=== PATIENT | female | born 1995 | race Caucasian/White ===

== ENCOUNTER 2017-08-19 23:19 | Emergency (ER) | payer OTHER ==
[2017-08-20 00:11] VITALS: RESP 18
--- NOTE | 2017-08-20 00:31 | ED PDOC ---
Arrival/HPI - General Chief Complaint: GI Problem Time Seen by Provider: 08/20/17 00:09 Historian: Patient - History of Present Illness Narrative History of Present Illness (Text): 08/20/17 00:31 Myranda Zapien is a 22 year old female who presents to the Emergency department accompanied by family complaining of nausea with multiple episodes of vomiting for 2 days. Patient also reports associated dizziness and abdominal discomfort. Patient states she has been unable to tolerate PO secondary to nausea. Patient denies any fever, chills, diarrhea, urinary symptoms, back pain , neck pain, headache, or any other complaints. Time/Duration: 24 hours Symptom Onset: Gradual Symptom Course: Unchanged Activities at Onset: Light Context: Home Past Medical History - Provider Review Nursing Documentation Reviewed: Yes - Infectious Disease Hx of Infectious Diseases: None - Psychiatric Hx Substance Use: No - Anesthesia Hx Anesthesia: No - Suicidal Assessment Feels Threatened In Home Enviroment: No Family/Social History - Physician Review Nursing Documentation Reviewed: Yes Family/Social History: Unknown Family HX Smoking Status: Never Smoked Hx Alcohol Use: No Hx Substance Use: No Allergies/Home Meds Allergies/Adverse Reactions: Allergies No Known Allergies Allergy (Verified 08/20/17 00:05) Review of Systems - Physician Review All systems were reviewed & negative as marked: Yes - Review of Systems Constitutional: Normal. absent: Fevers Eyes: Normal ENT: Normal Respiratory: Normal. absent: SOB, Cough Cardiovascular: Normal. absent: Chest Pain Gastrointestinal: Abdominal Pain, Nausea, Vomiting Genitourinary Female: Normal. absent: Dysuria, Frequency, Hematuria, Urine Output Changes Musculoskeletal: Normal. absent: Back Pain, Neck Pain Skin: Normal. absent: Rash Neurological: Dizziness. absent: Headache Endocrine: Normal Hemo/Lymphatic: Normal Psychiatric: Normal Physical Exam Vital Signs Reviewed: Yes Vital Signs Temp Pulse Resp BP Pulse Ox 08/20/17 03:30 97.7 F 68 18 119/72 98 08/20/17 00:03 97.8 F 87 18 129/76 99 Temperature: Afebrile Blood Pressure: Normal Pulse: Regular Respiratory Rate: Normal Appearance: Positive for: Well-Appearing, Non-Toxic, Comfortable Pain Distress: None Mental Status: Positive for: Alert and Oriented X 3 - Systems Exam Head: Present: Atraumatic, Normocephalic Pupils: Present: PERRL Extroacular Muscles: Present: EOMI Conjunctiva: Present: Normal Mouth: Present: Moist Mucous Membranes Neck: Present: Normal Range of Motion Respiratory/Chest: Present: Clear to Auscultation, Good Air Exchange. No: Respiratory Distress, Accessory Muscle Use Cardiovascular: Present: Regular Rate and Rhythm, Normal S1, S2. No: Murmurs Abdomen: Present: Normal Bowel Sounds. No: Tenderness, Distention, Peritoneal Signs Back: Present: Normal Inspection Upper Extremity: Present: Normal Inspection. No: Cyanosis, Edema Lower Extremity: Present: Normal Inspection. No: Edema Neurological: Present: GCS=15, CN II-XII Intact, Speech Normal Skin: Present: Warm, Dry, Normal Color. No: Rashes Psychiatric: Present: Alert, Oriented x 3, Normal Insight, Normal Concentration Medical Decision Making ED Course and Treatment: 08/20/17 00:31 Impression: 22 year old female complaining of nausea, vomiting, dizziness, and abdominal discomfort. Differential Diagnosis included but are not limited to: gastroenteritis vs. gastritis Plan: -- Labs -- Urinalysis -- IV fluids -- Reassess and disposition Progress Notes: 08/20/17 03:14 On reevaluation the patient feels better and is in no acute distress. I have discussed the results and plan with the patient, who expresses understanding. Patient given the opportunity to ask question, all questions were answered and there is agreement with the plan to discharge the patient home. Patient is stable for discharge. Patient was instructed to follow up with physician/clinic in 1-2 days or return if symptoms persist/worsen or new concerning symptoms arise. - Lab Interpretations Lab Results: 08/20/17 01:12 08/20/17 01:10 Lab Results 08/20/17 01:12: Urine Color Yellow, Urine Appearance Sl cloudy, Urine pH 7.5, Ur Specific [place] 1.015, Urine Protein Trace H, Urine Glucose (UA) Negative, Urine Ketones 40 H, Urine Blood Negative, Urine Nitrate Negative, Urine Bilirubin Negative, Urine Urobilinogen 1.0 H, Ur Leukocyte Esterase Negative, Urine RBC 0 - 2, Urine WBC 0 - 2, Ur Epithelial Cells 1 - 3, Amorphous Sediment Few, Urine Bacteria Occ 08/20/17 01:12: Urine HCG, Qual Negative 08/20/17 01:12: WBC 8.2, RBC 4.38, Hgb 12.6, Hct 37.0, MCV 84.5, MCH 28.8, MCHC 34.1, RDW 13.0, Plt Count 238, MPV 10.5, Gran % 78.5 H, Lymph % (Auto) 15.1 L, [place] % (Auto) 5.5, Eos % (Auto) 0.5 L, Baso % (Auto) 0.4, Gran # 6.47, Lymph # 1.2, [place] # 0.5, Eos # 0.0, Baso # 0.03 08/20/17 01:10: Sodium 140, Potassium 4.5, Chloride 102, Carbon Dioxide 29, Anion Gap 14, BUN 10, Creatinine 0.6 L, Est GFR ( Amer) > 60, Est GFR ( Non-Af Amer) > 60, Random Glucose 115 H, Calcium 9.9, Total Bilirubin 0.7, AST 27, ALT 32, Alkaline Phosphatase 85, Total Protein 7.9, Albumin 4.7, Globulin 3.2, Albumin/Globulin Ratio 1.5 I have reviewed the lab results: Yes - Medication Orders Current Medication Orders: Discontinued Medications Sodium Chloride (Sodium Chloride 0.9%) 1,000 mls @ 1,000 mls/hr IV .Q1H FRANCISCO Last Admin: 08/20/17 02:04 Dose: 1,000 mls/hr eMAR Start Stop Document 08/20/17 02:04 ANGELA (Rec: 08/20/17 02:04 ANGELA [id number]) Intravenous Solution Start Date 08/20/17 Start Time 01:10 End Date 08/20/17 End time 02:04 Total Infusion Time 54 Ondansetron HCl (Zofran Inj) 4 mg IVP STAT STA Stop: 08/20/17 01:45 Last Admin: 08/20/17 02:04 Dose: 4 mg IVP Administration Document 08/20/17 02:04 ANGELA (Rec: 08/20/17 02:04 ANGELA [id number]) Charges for Administration # of IVP Administrations 1 - Scribe Statement The provider has reviewed the documentation as recorded by the Aceibangel Delgadillo Provider Scribe Attestation: All medical record entries made by the Scribe were at my direction and personally dictated by me. I have reviewed the chart and agree that the record accurately reflects my personal performance of the history, physical exam, medical decision making, and the department course for this patient. I have also personally directed, reviewed, and agree with the discharge instructions and disposition. Disposition/Present on Arrival - Present on Arrival Any Indicators Present on Arrival: No History of DVT/PE: No History of Uncontrolled Diabetes: No Urinary Catheter: No History of Decub. Ulcer: No History Surgical Site Infection Following: None - Disposition Have Diagnosis and Disposition been Completed?: Yes Diagnosis: Gastroenteritis Disposition: HOME/ ROUTINE Disposition Time: 03:13 Condition: GOOD Discharge Instructions (ExitCare): Gastroenteritis (ED) Prescriptions: Ondansetron [Zofran Odt] 8 mg PO TID PRN #10 odt PRN Reason: Nausea/Vomiting Referrals: Abe Clark [Primary Care Provider] - Follow up with primary Forms: [employer] (Kazakh)
[2017-08-20] MEDS: Sodium Chloride 0.9% 1,000 ML IV SCH ×2 (01:11→02:04)
[2017-08-20 01:36] LABS: BASO # 0.03 K/mm3 (0.0-2.0); BASO % 0.4 % (0.0-3.0); EOS % 0.5 % (1.5-5.0); GRAN # 6.47 (1.4-6.5); GRAN % 78.5 % (50.0-68.0); LYMPH # 1.2 (1.2-3.4); LYMPH % 15.1 % (22.0-35.0); MEAN CELL VOLUME 84.5 fl (80.0-105.0); MEAN CORPUSCULAR HEMOGLOBIN 28.8 pg (25.0-35.0); MEAN CORPUSCULAR HGB CONC 34.1 g/dl (31.0-37.0); MEAN PLATELET VOLUME 10.5 fl (7.0-11.0); MONO # 0.5 (0.1-0.6); MONO % 5.5 % (1.0-6.0); WHITE BLOOD COUNT 8.2 10^3/ul (4.5-11.0)
[2017-08-20 01:47] LABS: ALB/GLOB RATIO 1.5 (1.1-1.8); ALKALINE PHOSPHATASE 85 U/L (38-126); ALT/SGPT 32 U/L (7-56); AST/SGOT 27 U/L (14-36); BILIRUBIN,TOTAL 0.7 mg/dL (0.2-1.3); BLOOD UREA NITROGEN 10 mg/dL (7-21); CALCIUM 9.9 mg/dL (8.4-10.5); CARBON DIOXIDE 29 mmol/L (21-33); CHLORIDE 102 mmol/L (98-107); GFR AFRICAN-AMERICAN > 60; GLUCOSE,RANDOM 115 mg/dL (70-110); POTASSIUM 4.5 mmol/L (3.6-5.0); SODIUM 140 mmol/L (132-148); TOTAL PROTEIN 7.9 g/dL (5.8-8.3)
[2017-08-20 01:56] LABS: PH,URINE 7.5 (4.7-8.0); URINE BILIRUBIN NEGATIVE (NEGATIVE); URINE BLOOD NEGATIVE (NEGATIVE); URINE GLUCOSE (UA) NEGATIVE (NEGATIVE); URINE KETONE 40 mg/dL (NEGATIVE); URINE LEUKOCYTE ESTERASE NEGATIVE Leu/uL (NEGATIVE); URINE PROTEIN TRACE mg/dL (<30 mg/dL)
[2017-08-20 02:09] LABS: URINE COLOR YELLOW (YELLOW)
[2017-08-20 02:11] LABS: URINE APPEARANCE SL CLOUDY (CLEAR); URINE RBC 0 - 2 /hpf (0-2); URINE WBC 0 - 2 /hpf (0-6)
[2017-08-20 02:12] LABS: URINE AMORPHOUS SEDIMENT FEW; URINE BACTERIA OCC (NEG)
[2017-08-20 04:50] VITALS: BP 119/72; PULSE 68; TEMP 97.7; O2SAT 98
== END 2017-08-20 03:45 | disposition home or self-care (01) ==
LOC: ED 23:19
DX: K52.9 Noninfective gastroenteritis and colitis, unspecified (principal)
CPT/HCPCS: 80053; 81001; 84703; 85025; 96361; 96374; 99285; J2405; J7040

== ENCOUNTER 2017-11-06 21:11 | Emergency (ER) | payer OTHER ==
[2017-11-06 21:47] VITALS: BMI 32.5
[2017-11-06 21:48] VITALS: TEMP 99.1
--- NOTE | 2017-11-06 22:41 | ED PDOC ---
Arrival/HPI - General Chief Complaint: Cough, Cold, Congestion Time Seen by Provider: 11/06/17 22:08 Historian: Patient - History of Present Illness Narrative History of Present Illness (Text): 11/06/17 22:38 22yo female in Emergency department complaining of nonproductive cough x 6days. States she started having left sided anterior lower ribs pain with cough yesterday. States her brother also had similar sold symptoms. She otherwise denies chest pain, shortness of breathe diaphoresis, sore throat, ear pain, fever, chills, travel. Past Medical History - Provider Review Nursing Documentation Reviewed: Yes - Infectious Disease Hx of Infectious Diseases: None - Cardiac Hx Cardiac Disorders: No - Pulmonary Hx Respiratory Disorders: No - Neurological Hx Neurological Disorder: No - HEENT Hx HEENT Disorder: No - Renal Hx Renal Disorder: No - Endocrine/Metabolic Hx Endocrine Disorders: No - Hematological/Oncological Hx Blood Disorders: No - Integumentary Hx Dermatological Disorder: No - Musculoskeletal/Rheumatological Hx Musculoskeletal Disorders: No - Gastrointestinal Hx Gastrointestinal Disorders: No - Genitourinary/Gynecological Hx Genitourinary Disorders: No - Psychiatric Hx Psychophysiologic Disorder: No Hx Substance Use: No - Anesthesia Hx Anesthesia: No - Suicidal Assessment Feels Threatened In Home Enviroment: No Family/Social History - Physician Review Nursing Documentation Reviewed: Yes Family/Social History: Unknown Family HX Smoking Status: Never Smoked Hx Alcohol Use: No Hx Substance Use: No Allergies/Home Meds Allergies/Adverse Reactions: Allergies No Known Allergies Allergy (Verified 11/06/17 21:47) Review of Systems - Physician Review All systems were reviewed & negative as marked: Yes - Review of Systems Constitutional: Normal Eyes: Normal ENT: Normal Respiratory: Cough. absent: SOB, Sputum, Wheezing Cardiovascular: Normal Gastrointestinal: Normal Genitourinary Female: Normal Musculoskeletal: Normal Skin: Normal Neurological: Normal Endocrine: Normal Hemo/Lymphatic: Normal Psychiatric: Normal Physical Exam Vital Signs Reviewed: Yes Vital Signs Temp Pulse Resp BP Pulse Ox 11/06/17 21:48 99.1 F 117 H 20 131/76 97 11/06/17 21:47 99.1 F 117 H 20 131/76 97 Temperature: Afebrile Blood Pressure: Normal Pulse: Tachycardic Respiratory Rate: Normal Appearance: Positive for: Well-Appearing, Non-Toxic, Comfortable Pain Distress: None Mental Status: Positive for: Alert and Oriented X 3 - Systems Exam Head: Present: Atraumatic, Normocephalic Pupils: Present: PERRL Extroacular Muscles: Present: EOMI Conjunctiva: Present: Normal Mouth: Present: Moist Mucous Membranes Neck: Present: Normal Range of Motion Respiratory/Chest: Present: Clear to Auscultation, Good Air Exchange, Tender to Palpation (Left anterior ribs). No: Respiratory Distress, Accessory Muscle Use , Wheezes, Decreased Breath Sounds, Rales, Retracting, Rhonchi, Tachypneic Cardiovascular: Present: Regular Rate and Rhythm, Normal S1, S2. No: Murmurs Abdomen: Present: Normal Bowel Sounds. No: Tenderness, Distention, Peritoneal Signs Back: Present: Normal Inspection Upper Extremity: Present: Normal Inspection. No: Cyanosis, Edema Lower Extremity: Present: Normal Inspection. No: Edema Neurological: Present: GCS=15, CN II-XII Intact, Speech Normal Skin: Present: Warm, Dry, Normal Color. No: Rashes Psychiatric: Present: Alert, Oriented x 3, Normal Insight, Normal Concentration Medical Decision Making ED Course and Treatment: 11/06/17 23:07 PT was hemodynamically stable in Emergency department. CXR NAD Rapid flu negative PT was treated in Emergency department and DC home with Zpack, antitussive and NSAID. Referred to her PMD. - Lab Interpretations Lab Results: Lab Results 11/06/17 22:30: Influenza Typ A,B (EIA) Negative for flu a/b - RAD Interpretation Radiology Orders: 11/06/17 22:09 CHEST TWO VIEWS (PA/LAT) [RAD] Stat - Medication Orders Current Medication Orders: Azithromycin (Zithromax) 500 mg PO STAT STA PRN Reason: Protocol Stop: 11/06/17 23:01 Guaifenesin (Robitussin) 200 mg PO ONCE STA Stop: 11/06/17 23:02 Ketorolac Tromethamine (Toradol) 60 mg IM STAT STA Stop: 11/06/17 23:01 Disposition/Present on Arrival - Present on Arrival Any Indicators Present on Arrival: No History of DVT/PE: No History of Uncontrolled Diabetes: No Urinary Catheter: No History of Decub. Ulcer: No History Surgical Site Infection Following: None - Disposition Have Diagnosis and Disposition been Completed?: Yes Diagnosis: Cough, Rib pain Disposition: HOME/ ROUTINE Disposition Time: 23:00 Patient Plan: Discharge Patient Problems: Current Active Problems Problem Status Onset Cough Acute Rib pain Acute Condition: STABLE Discharge Instructions (ExitCare): Chest Pain (ED) Additional Instructions: Take medication as directed Follow up with your doctor' Return to Emergency department for any new symptoms Prescriptions: Azithromycin [Zithromax] 250 mg PO DAILY #4 tab Ibuprofen [Motrin Tab] 600 mg PO Q6 #20 .8 Promethazine [Phenergan Syrup] 6.25 mg PO Q6 #100 ml Referrals: PCP,NO [Primary Care Provider] - Follow up with primary [facility] [place] [Outside] - Follow up with primary Forms: [employer] (Malagasy)
[2017-11-06] MEDS ORDERED: guaiFENesin 200 mg/10 ml Syrup UD PO STA (23:01)
[2017-11-06 23:32] VITALS: BP 128/69; PULSE 99; RESP 18; O2SAT 98
== END 2017-11-06 23:15 | disposition home or self-care (01) ==
LOC: ED 21:11
DX: R05 Cough (principal); R07.81 Pleurodynia
CPT/HCPCS: 71046; 87804; 96372; 99283; J1885